=== PATIENT | male | born 1970 | race American Indian/Alaskan Native ===

== ENCOUNTER 2017-08-19 09:25 | Outpatient (CLI) | payer MEDICAID ==
[~2017-08-19 09:25] MED LIST: DIVA500T2 PO; IBUP-1985 PO; LEVA15HF4 INH; QUET-1 PO; QUET400T3 PO
== END 2017-08-19 10:00 | disposition home or self-care (01) ==
LOC: WOUND CARE 09:25 → EDSTATUS 09:30 → WOUND CARE 10:00
PROVIDERS: ATTEND Surgery
DX: E11.622 Type 2 diabetes mellitus with other skin ulcer (principal); L97.821 Non-pressure chronic ulcer of other part of left lower leg limited to breakdown of skin; I10 Essential (primary) hypertension; F41.9 Anxiety disorder, unspecified; F12.10 Cannabis abuse, uncomplicated; F32.9 Major depressive disorder, single episode, unspecified; F15.10 Other stimulant abuse, uncomplicated; F17.200 Nicotine dependence, unspecified, uncomplicated; Z90.89 Acquired absence of other organs; Z90.49 Acquired absence of other specified parts of digestive tract; Z79.899 Other long term (current) drug therapy
CPT/HCPCS: 36416; 82948; 99211; A6021; A6223; A6446

== ENCOUNTER 2017-08-25 09:04 | Day surgery (SDC) | payer MEDICAID | END 2017-08-25 10:23 | disposition home or self-care (01) | LOC: WOUND CARE 09:04 | PROVIDERS: ATTEND Surgery | DX: E11.622 Type 2 diabetes mellitus with other skin ulcer (principal); L97.821 Non-pressure chronic ulcer of other part of left lower leg limited to breakdown of skin; I10 Essential (primary) hypertension; F41.9 Anxiety disorder, unspecified; F12.10 Cannabis abuse, uncomplicated; F32.9 Major depressive disorder, single episode, unspecified; F15.10 Other stimulant abuse, uncomplicated; F17.200 Nicotine dependence, unspecified, uncomplicated; Z79.899 Other long term (current) drug therapy; Z90.89 Acquired absence of other organs | CPT/HCPCS: 17250; 36416; 82948; A6021; A6212 ==

== ENCOUNTER 2018-04-28 07:12 | Emergency (ER) | payer MEDICAID ==
[~2018-04-28] VITALS: Ht 188 cm; Wt 84.5 kg
[2018-04-28 07:46] VITALS: BP 156/83
== END 2018-04-28 08:00 | disposition home or self-care (01) ==
LOC: ER 07:16
DX: F22 Delusional disorders (principal); I10 Essential (primary) hypertension; E11.9 Type 2 diabetes mellitus without complications; G89.29 Other chronic pain; F31.9 Bipolar disorder, unspecified; F20.9 Schizophrenia, unspecified; F41.0 Panic disorder [episodic paroxysmal anxiety]; F12.90 Cannabis use, unspecified, uncomplicated; F15.90 Other stimulant use, unspecified, uncomplicated; Z56.0 Unemployment, unspecified; Z90.49 Acquired absence of other specified parts of digestive tract; Z98.890 Other specified postprocedural states; Z88.8 Allergy status to other drugs, medicaments and biological substances; Z88.5 Allergy status to narcotic agent
CPT/HCPCS: 82948; 99284